=== PATIENT | male | born 1940 | race Caucasian/White ===

== ENCOUNTER 2016-08-01 02:21 | Emergency (ER) | payer MEDICARE ==
[~2016-08-01] VITALS: Ht 182.9 cm; Wt 110.0 kg
[~2016-08-01 02:21] MED LIST: CLON2TAB PO; CRANCAP11 PO; CYMB60CA PO; IMIP50TA30 PO; METO50TA PO; MULTCAP14 PO; OMEP20CA5 PO; OXYC1SOL5 PO; PREG100 PO
[2016-08-01 02:27] VITALS: BP 174/98; PULSE 87; RESP 14; TEMP 97.5; O2SAT 100
[2016-08-01] MEDS ORDERED: OXYC-432 PO (02:47)
[2016-08-01] MEDS ORDERED: LYRI75CA PO (02:47)
[2016-08-01] MEDS ORDERED: METO50TA PO (02:47)
[2016-08-01] MEDS ORDERED: MULT1TAB85 PO (02:47)
[2016-08-01] MEDS ORDERED: IMIP50TA PO (02:47)
[2016-08-01] MEDS ORDERED: CLON2TAB PO (02:47)
[2016-08-01] MEDS ORDERED: CYMB60CA PO (02:47)
[2016-08-01] MEDS ORDERED: OMEP20TA PO (02:47)
[2016-08-01] MEDS ORDERED: LIDOCAINE 1%/EPINEPHrine 1:100,000 SOLN 20 ML VIAL INFIL ONE (03:00)
[2016-08-01] MEDS ORDERED: HYDR-3533 PO (03:40)
--- NOTE | 2016-08-01 03:41 | PD ---
HPI Chief Complaint: Laceration/Skin Injury Time Seen by Provider: 02:44 Travel History International Travel<30 days: No Contact w/Intl Traveler<30days: No Traveled to known affect area: No History of Present Illness HPI Well 75-year-old male presents emergency department after trip and fall with a scalp laceration. 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 No LOC. Takes an aspirin every other day but no other blood thinners. No other complaints. 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 MRSA PCR Screen negative 03/28/15. Reported Meds & Prescriptions Reported Meds & Active Scripts Active Reported Oxycodone-Acetaminophen 5-325 mg Tab 2 Tab PO Q6H PRN Multivitamin Men (Multiple Vitamins W/ Minerals) 1 Tab Tab 1 Tab PO DAILY Omeprazole 20 Mg Tab 20 Mg PO DAILY Metoprolol Tartrate 50 Mg Tab 50 Mg PO HS Lyrica (Pregabalin) 75 Mg Cap 75 Mg PO HS Imipramine HCL (Imipramine HCl) 50 Mg Tab 50 Mg PO HS Cymbalta DR (Duloxetine HCl) 60 Mg Capdr 60 Mg PO HS Clonazepam 2 Mg Tab 2 Mg PO Q6HR PRN Review of Systems Except as stated in HPI: all other systems reviewed are Neg Physical Exam Narrative Gen.: Well-appearing 75-year-old man, no acute distress Head: 4 cm laceration over the top of the head. No active bleeding. Data Data Last Documented VS Vital Signs Date Time Temp Pulse Resp B/P Pulse Ox O2 Delivery O2 Flow Rate FiO2 08/01/16 02:27 97.5 87 14 174/98 100 Room Air Orders Lidocai-Epi 1%-1:100,000 Inj (Xylocaine- (08/01/16 03:00) MDM Medical Decision Making Medical Screen Exam Complete: Yes Emergency Medical Condition: Yes Differential Diagnosis Scalp laceration, bleeding, other Narrative Course Scalp laceration repaired primarily. Tetanus up-to-date. Procedures Procedure Narrative LACERATION LOCATION: Scalp LENGTH: 4 cm NUMBER OF STITCHES/YOLANDA: 12 REPAIR: The area of the laceration was prepped with Betadine and sterilely draped. The laceration was infiltrated with 1% lidocaine with epinephrine. The wound was copiously irrigated and explored without evidence of foreign body , tendon injury or neurovascular injury. The wound was closed using 4-0 Prolene. This was a single layer repair. A sterile dressing was applied. The patient was advised to keep the dressing clean and dry. Patient tolerated the procedure well. Diagnosis Primary Impression: Laceration of scalp Qualified Code: S01.01XA - Laceration of scalp, initial encounter Additional Instructions: Use Lortab as needed for pain. Keep wound clean and dry. Do not wet for 24 hours. After 24 hours and clean the wound gently with soap and water. Gently clean wound twice daily with soap and water. Do not soak wound. No swimming, hot tubs, or allowing wound to get too wet. Apply antibiotic ointment to wound twice daily. Return to the emergency department for any worsening pain, swelling, redness, significant bleeding, or any other new or worsening symptoms. Sutures to be removed in 7 days. Med/Other Pt SpecificInfo: Prescription(s) given Scripts Hydrocodone-Acetaminophen (Lortab)5-325 Mg Tab1-2 Tab PO Q6H PRN (PAIN) #12 TAB Prov:William Santos MD 08/01/16 Disposition: 01 DISCHARGE HOME Condition: Stable William Santos MD Aug 01, 2016 03:40
== END 2016-08-01 03:53 | disposition home or self-care (01) ==
LOC: NEPC 02:21
DX: S01.01XA Laceration without foreign body of scalp, initial encounter (principal); Z79.82 Long term (current) use of aspirin; W01.0XXA Fall on same level from slipping, tripping and stumbling without subsequent striking against object, initial encounter
CPT/HCPCS: 12013

== ENCOUNTER 2016-08-08 15:48 | Emergency (ER) | payer MEDICARE ==
[~2016-08-08] VITALS: Ht 182.9 cm; Wt 105.0 kg
[~2016-08-08 15:48] MED LIST changes: -CRANCAP11 PO; +HYDR-3533 PO; +IMIP50TA PO; -IMIP50TA30 PO; +LYRI75CA PO; +MULT1TAB85 PO; -MULTCAP14 PO; -OMEP20CA5 PO; +OMEP20TA PO; +OXYC-432 PO; -OXYC1SOL5 PO; -PREG100 PO
[2016-08-08 16:03] VITALS: BP 114/66; PULSE 99; RESP 16; TEMP 98; O2SAT 94
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
== END 2016-08-08 16:56 | disposition home or self-care (01) ==
LOC: NEPB 15:48
DX: S01.01XD Laceration without foreign body of scalp, subsequent encounter (principal); Z86.14 Personal history of Methicillin resistant Staphylococcus aureus infection; Z48.02 Encounter for removal of sutures; X58.XXXD Exposure to other specified factors, subsequent encounter
CPT/HCPCS: 99281